=== PATIENT | male | born 1985 | race African-American/Black ===

== ENCOUNTER 2017-08-25 21:59 | Emergency (ER) | payer OTHER ==
[2017-08-25 22:07] VITALS: BP 135/85; PULSE 80; TEMP 98.5; BMI 36.3
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
== END 2017-08-25 23:30 | disposition home or self-care (01) ==
LOC: FER 21:59
DX: S09.92XA Unspecified injury of nose, initial encounter (principal); Y04.2XXA Assault by strike against or bumped into by another person, initial encounter; Y93.9 Activity, unspecified; Y92.099 Unspecified place in other non-institutional residence as the place of occurrence of the external cause; F70 Mild intellectual disabilities; F98.9 Unspecified behavioral and emotional disorders with onset usually occurring in childhood and adolescence; F20.9 Schizophrenia, unspecified
CPT/HCPCS: 70486-TC; 99281-25